=== PATIENT | male | born 1950 | race Caucasian/White ===

== ENCOUNTER 2019-12-24 10:04 | Emergency (ER) | payer MEDICARE ==
[2019-12-24] MEDS ORDERED: SODIUM CHLORIDE 0.9% 1000ML 1,000 ML IVS PRN (10:29)
--- NOTE | 2019-12-24 10:59 | ED.PDOC ---
History of Present Illness - General Chief Complaint: General Stated Complaint: blood pressure, decreased urination Time Seen by Provider: 12/24/19 10:23 - History of Present Illness Initial Comments: 69 yo m comes in with with c/c of pain with urination, increased bp at home (readings 180 systolic) and flank pain, RUQ pain. States this all started after nuclear scan for his hyperparthyroid. States his Ca level went from 10 to 11. Also glucose have been running high. 212 was highest. no n/v/d. pain is constant and radiates to right flank, and right chest. no cough or shortness of breath. no dizziness. Low grade fever at home 99.9. Also patient has been more confused lately, with simple task per . Unsure if its related to hypercalcemia or something else. denies any falls or trauma, no syncope Allergies/Adverse Reactions: Allergies NO KNOWN ALLERGY Allergy (Verified 12/24/19 10:21) Home Medications: Ambulatory Orders Amlodipine Besylate 10 mg PO DAILY 12/24/19 Aspirin [Aspirin Childrens] 81 mg PO DAILY 12/24/19 Losartan Potassium 100 mg PO DAILY 12/24/19 Metformin HCl [Fortamet] 500 mg PO BID 12/24/19 Omeprazole 40 mg PO DAILY 12/24/19 Pravastatin Sodium 40 mg PO DAILY 12/24/19 Review of Systems - Review of Systems Constitutional: States: weakness. Denies: chills, diaphoresis, fever, malaise EENTM: Denies: eye pain, blurred vision, double vision Respiratory: Denies: cough, orthopnea, short of breath, stridor Cardiology: States: chest pain. Denies: edema, palpitations, syncope Gastrointestinal/Abdominal: States: abdominal pain. Denies: constipation, diarrhea, nausea, vomiting Genitourinary: States: dysuria. Denies: discharge, frequency, hematuria Musculoskeletal: States: back pain. Denies: joint pain, joint swelling, muscle pain Skin: Denies: change in color, change in hair/nails Neurological: Denies: anxiety, depressed, headache, numbness Endocrine: Denies: unexplained weight gain, unexplained weight loss Hematologic/Lymphatic: Denies: anemia, blood clots, easy bleeding Past Medical History (General) - Patient Medical History Hx Cardiac Disorders: No Hx Congestive Heart Failure: No Hx Hypertension: Yes Hx Other - free text: hx of electrocution Surgical History: other - Social History Hx Tobacco Use: Yes Family Medical History - Family History Mother Family History: No Known Physical Exam - Physical Exam General Appearance: Alert, Comfortable, No apparent distress Eye Exam: bilateral normal Ears, Nose, Throat: hearing grossly normal, normal ENT inspection Neck: non-tender, full range of motion, supple, normal inspection Respiratory: chest non-tender, lungs clear, normal breath sounds, no respiratory distress, no accessory muscle use Cardiovascular/Chest: normal peripheral pulses, regular rate, rhythm, no edema, no gallop, no JVD, no murmur Peripheral Pulses: radial,right: 2+, radial,left: 2+, posterior tibialis,right: 2+, posterior tibialis,left: 2+ Gastrointestinal/Abdominal: normal bowel sounds, non tender - RUQ tenderness. no rebound or gaurding. 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 patient given NS bolus, zofran and morphine for pain. VSS. CT shows 6 mm stone in R ureter. aortic normal size and caliber. CXR Right hilar prominence which may be related to normal bronchovascular structures. Chest CT with IV contrast is recommended for further evaluation and to exclude the possibility of adenopathy or hilar mass. CT head shows no ICH. 12/24/19 15:00 bilirubin 3.3, due to RUQ pain, concerned for choleycystitis vs cholangitis. Patient know has fever 100.6, will give 650 mg tylenol. Bedside gallbladder distended, no stones, but I do see shadowing, possible stone in cbd. NO formal US here. Patient given one dose of zosyn. Will transfer for US. WBC 17.7. CT chest ordered due to abnormal ekg, and due to the right sided pain and presence of fever. The data reviewed when caring for this patient included: nurse notes etc. The history and assessments from nurses notes were reviewed and considered, and the patient's home medication list was also reviewed and considered. My assessment and the results of testing completed here in the ED were discussed with the patient/family. All questions were answered, and they express understanding of my assessment and the plan. - Results/Orders Results/Orders: 12/24/19 10:29 Sodium Chloride 0.9% 1000ML [Ns 1000 ml] 1,000 ml IVS STAT 12/24/19 10:30 EKG STAT 12/24/19 11:39 URINE CULTURE W/COLONY COUNT Stat 12/24/19 13:20 BLOOD CULTURE Stat 12/24/19 15:12 Hold Metformin x 48Hrs [id number] Chest w/Contrast [CT] Stat Laboratory Results WBC 17.7 K/mm3 (4.8-10.8) H 12/24/19 11:12 RBC 5.62 M/mm3 (4.70-6.10) 12/24/19 11:12 Hgb 17.3 gm/dL (14.0-18.0) 12/24/19 11:12 Hct 48.5 % (42.0-52.0) 12/24/19 11:12 MCV 86.3 fl (80.0-94.0) 12/24/19 11:12 MCH 30.7 pg (27.0-31.0) 12/24/19 11:12 MCHC 35.6 g/dL (33.0-37.0) 12/24/19 11:12 RDW 13.5 % (11.5-14.5) 12/24/19 11:12 Plt Count 205 K/mm3 (130-400) 12/24/19 11:12 MPV 8.6 fl (7.40-10.4) 12/24/19 11:12 Absolute Neuts (auto) Not Reportable 12/24/19 11:12 Absolute Lymphs (auto) Not Reportable 12/24/19 11:12 Absolute Monos (auto) Not Reportable 12/24/19 11:12 Absolute Eos (auto) Not Reportable 12/24/19 11:12 Neutrophils % Not Reportable 12/24/19 11:12 Neutrophils % (Manual) 69.0 % (42.0-78.0) 12/24/19 11:12 Lymphocytes % Not Reportable 12/24/19 11:12 Lymphocytes % (Manual) 6.0 % 12/24/19 11:12 Monocytes % Not Reportable 12/24/19 11:12 Monocytes % (Manual) 8.0 % 12/24/19 11:12 Eosinophils % Not Reportable 12/24/19 11:12 Basophils % Not Reportable 12/24/19 11:12 Band Neutrophils 17.0 % (0-2) H* 12/24/19 11:12 Platelet Estimate Normal (NORMAL) 12/24/19 11:12 Normal RBC Morphology Normal rbc morph 12/24/19 11:12 PT 10.9 SECONDS (9.0-10.9) 12/24/19 11:12 INR 1.10 (0.9-1.15) 12/24/19 11:12 PTT (SP) 22.1 SECONDS (21.8-31.6) 12/24/19 11:12 Sodium 137 mmol/L (135-145) 12/24/19 11:12 Potassium 3.6 mmol/L (3.6-5.0) 12/24/19 11:12 Chloride 107 mmol/L (101-111) 12/24/19 11:12 Carbon Dioxide 21 mmol/L (21-31) 12/24/19 11:12 Anion Gap 12.6 (12-18) 12/24/19 11:12 BUN 19 mg/dL (7-18) H 12/24/19 11:12 Creatinine 1.00 mg/dL (0.6-1.3) 12/24/19 11:12 BUN/Creatinine Ratio 19.0 (10-20) 12/24/19 11:12 Random Glucose 106 mg/dL (70-105) H 12/24/19 11:12 Serum Osmolality 276.5 mOsm/L (275-295) 12/24/19 11:12 Calcium 10.9 mg/dL (8.4-10.2) H 12/24/19 11:12 Total Bilirubin 3.3 mg/dL (0.2-1.0) H* 12/24/19 11:12 AST 25 IU/L (10-42) 12/24/19 11:12 ALT 33 IU/L (10-60) 12/24/19 11:12 Alkaline Phosphatase 64 IU/L (42-121) 12/24/19 11:12 Ammonia 10 umol/L (10-35) 12/24/19 11:12 Troponin I 0.03 ng/mL (0.01-0.05) 12/24/19 11:12 Serum Total Protein 7.4 gm/dL (6.4-8.2) 12/24/19 11:12 Albumin 4.7 g/dl (3.2-5.5) 12/24/19 11:12 Globulin 2.7 gm/dL (2.3-3.5) 12/24/19 11:12 Albumin/Globulin Ratio 1.7 (1.1-1.9) 12/24/19 11:12 Lipase 31 U/L (22-51) 12/24/19 11:51 TSH 1.77 uIU/mL (0.34-5.60) 12/24/19 11:12 Urine Color Yellow (Yellow) 12/24/19 11:39 Urine Appearance Clear (Clear) 12/24/19 11:39 Urine pH 5.0 (4.5-7.8) 12/24/19 11:39 Ur Specific Bridger 1.025 (1.005-1.030) 12/24/19 11:39 Urine Protein Negative mg/dL 12/24/19 11:39 Urine Glucose (UA) Negative mg/dL (Negative) 12/24/19 11:39 Urine Ketones Negative mg/dL (NEGATIVE) 12/24/19 11:39 Urine Blood Moderate (Negative) H 12/24/19 11:39 Urine Nitrite Negative 12/24/19 11:39 Urine Bilirubin Negative (NEGATIVE) 12/24/19 11:39 Urine Urobilinogen 0.2 mg/dL (0.2-1.0) 12/24/19 11:39 Ur Leukocyte Esterase Small (Negative) H 12/24/19 11:39 Urine RBC 5-10 /hpf H 12/24/19 11:39 Urine WBC 3-5 /hpf H 12/24/19 11:39 Ur Epithelial Cells 0 /hpf 12/24/19 11:39 Urine Bacteria 1+ 12/24/19 11:39 Departure - Departure Clinical Impression: Nephrolithiasis, Cholangitis Disposition: Transfer to Hospital Condition: Fair Departure Forms: ED Discharge - Pt. Copy, Patient Portal Self Enrollment Referrals: SHAUNNA ORTEGA [Primary Care Provider] - 1-2 Weeks Home Medications: Ambulatory Orders Amlodipine Besylate 10 mg PO DAILY 12/24/19 Aspirin [Aspirin Childrens] 81 mg PO DAILY 12/24/19 Losartan Potassium 100 mg PO DAILY 12/24/19 Metformin HCl [Fortamet] 500 mg PO BID 12/24/19 Omeprazole 40 mg PO DAILY 12/24/19 Pravastatin Sodium 40 mg PO DAILY 12/24/19 Transfer to Outside Facility - Transfer Information Decision to Transfer Date: 12/24/19 Decision to Transfer Time: 13:50 Reason for Transfer: specialized care not available Accepting Facility: [facility]
--- NOTE | 2019-12-24 11:41 | RAD ---
EXAM DESCRIPTION: Chest,2 Views CLINICAL HISTORY: shortness of breath COMPARISON: None available FINDINGS: The cardiac silhouette is not enlarged. Prominence of the right hilum There is no airspace consolidation or pleural effusion. The bronchovascular markings are within normal limits, and the lungs are not hyperinflated. There is no pneumothorax or acute fracture. IMPRESSION: Right hilar prominence which may be related to normal bronchovascular structures. Chest CT with IV contrast is recommended for further evaluation and to exclude the possibility of adenopathy or hilar mass. Electronically signed by: Cam Quesada MD 12/24/2019 11:39 AM CDT
--- NOTE | 2019-12-24 12:24 | CT ---
EXAM DESCRIPTION: Head CLINICAL HISTORY: 69 years, Male, confusion COMPARISON: None TECHNIQUE: Head CT was performed without IV contrast. This exam was performed according to our departmental dose-optimization program, which includes automated exposure control, adjustment of the mA and/or kV according to patient size and/or use of iterative reconstruction technique. FINDINGS: No acute intracranial hemorrhage. No midline shift. The ventricles are not dilated. Probable partially calcified choroid plexus cysts of doubtful clinical significance. No cortical infarct or intracranial mass. No posterior fossa lesion. Vascular calcifications. Visualized paranasal sinuses and orbits are unremarkable except for a 2 cm mucous retention cyst or polyp in the right maxillary sinus, partially visualized on this exam. No calvarial fracture. IMPRESSION: Vascular calcifications, but no cortical infarct or other acute intracranial abnormality. If symptoms persist or worsen, followup head CT in 24 hr or MRI is recommended. Electronically signed by: Cam Quesada MD 12/24/2019 12:22 PM CDT
--- NOTE | 2019-12-24 12:28 | CT ---
EXAM DESCRIPTION: Abdoment/Pelvis w/o Contrast CLINICAL HISTORY: hematuria, stone, abd pain COMPARISON: None Available TECHNIQUE: CT of the abdomen and Pelvis was performed without IV contrast. This exam was performed according to our departmental dose-optimization program, which includes automated exposure control, adjustment of the mA and/or kV according to patient size and/or use of iterative reconstruction technique. FINDINGS: 5-6 mm calculus at the right UPJ without right-sided hydroureteronephrosis. No additional right-sided urinary tract calculus. The left kidney and left ureter are unremarkable. No bladder calcification. The prostate is at the upper limits of normal size, measuring just under 5 cm transverse diameter. No acute lung base abnormality. Prominence of the interlobar artery likely accounts for appearance of the right hilum on today's chest radiograph. Small hiatal hernia. No dilated small bowel loops. Normal appendix. Degenerative changes in the lumbar spine. The exam is otherwise unremarkable for noncontrast technique. IMPRESSION: 5 to 6 mm right UPJ calculus without right-sided hydronephrosis. Electronically signed by: Cam Quesada MD 12/24/2019 12:27 PM CDT
[2019-12-24] MEDS ORDERED: PIPERACILLIN/TAZOBACTAM 4.5 GM in SODIUM CHLORIDE 0.9% 100ML 100 ML IVPB ONE (12:52)
[2019-12-24] MEDS ORDERED: MORPHINE SULFATE INJ 10 MG/ML VIAL IV ONE (13:32)
[2019-12-24] MEDS ORDERED: ONDANSETRON INJ 4 MG/2 ML VIAL IV ONE (13:32)
[2019-12-24] MEDS ORDERED: ACETAMINOPHEN 325 MG TAB PO ONE (15:41)
[2019-12-24 16:04] VITALS: TEMP 99.3
--- NOTE | 2019-12-24 16:16 | CT ---
EXAM: CT Chest With Intravenous Contrast CLINICAL HISTORY: The patient is 69 years old and is Male; abnormal xray SOB TECHNIQUE: Axial computed tomography images of the chest with intravenous contrast. Sagittal and coronal reformatted images were created and reviewed. This CT exam was performed using one or more of the following dose reduction techniques: automated exposure control, adjustment of the mA and/or kV according to patient size, and/or use of iterative reconstruction technique. COMPARISON: December 24, 2019 CXR. FINDINGS: Lungs: No pulmonary consolidation or groundglass opacities. Pleural space: No pleural effusion or pneumothorax. Heart: Unremarkable. No cardiomegaly. No significant pericardial effusion. Bones/joints: No acute fracture visualized. Vertebral osteophytes. No dislocation. Soft tissues: Unremarkable. Vasculature: Mildly enlarged main pulmonary arteries are the likely reason for the findings on chest x-ray. Lymph nodes: No pathologically enlarged mediastinal or hilar lymph nodes. Liver: Fatty liver. IMPRESSION: 1. No pulmonary consolidation or groundglass opacities. 2. Mildly enlarged main pulmonary arteries are the likely reason for the findings on chest x-ray. 3. No pathologically enlarged mediastinal or hilar lymph nodes. Electronically signed by: Kim Griggs MD 12/24/2019 4:15 PM CDT
[2019-12-24 16:36] VITALS: BP 159/72; O2SAT 92
== END 2019-12-24 16:36 | disposition short-term general hospital (02) ==
LOC: ER 10:04
DX: K83.09 Other cholangitis (principal); N20.0 Calculus of kidney; I45.2 Bifascicular block; I10 Essential (primary) hypertension; Z87.891 Personal history of nicotine dependence; Z79.82 Long term (current) use of aspirin
CPT/HCPCS: 36415; 70450; 71046; 71260; 74176; 80053; 81001; 82140; 83690; 84443; 84484; 85025; 85610; 85730; 87040; 87086; 93005; J2270; J2405; J2543; J7030; J7050